=== PATIENT | male | born 1945 | race Hispanic/Latino ===

== ENCOUNTER 2017-06-21 21:25 | Emergency (ER) | payer MEDICARE ==
[2017-06-21] MEDS ORDERED: CLONIDINE HCL 0.1 MG TABLET ONE (21:44)
[2017-06-21 22:18] LABS: BASOPHILS % (AUTO) 1.2 % (0.0-5.0); EOSINOPHILS % (AUTO) 3.1 % (0.0-8.0); HEMATOCRIT 37.2 % (42-54); LYMPHOCYTES % (AUTO) 21.9 % (21.0-51.0); MEAN CORPUSCULAR HEMOGLOBIN 29.2 pg (27.0-33.0); MEAN CORPUSCULAR HGB CONC 34.3 g/dL (32.0-36.0); MEAN CORPUSCULAR VOLUME 85.2 fL (79-99); MONOCYTES % (AUTO) 11.3 % (3.0-13.0); NEUTROPHILS % (AUTO) 62.5 % (40.0-77.0); PLATELET COUNT (AUTO) 230 K/uL (130-400); RED BLOOD CELL COUNT(AUTO) 4.37 MIL/uL (4.50-6.20); RED CELL DISTRIBUTION WIDTH 13.6 % (11.0-15.5); WHITE BLOOD COUNT (AUTO) 6.6 K/uL (4.8-10.8)
[2017-06-21 22:43] LABS: CREATININE 1.7 mg/dL (0.5-1.5); POTASSIUM 3.4 mmol/L (3.5-5.1)
== END 2017-06-21 23:29 | disposition home or self-care (01) ==
LOC: EDH 21:25
DX: I10 Essential (primary) hypertension (principal)
CPT/HCPCS: 36415; 80048; 84484; 85025; 93005

== ENCOUNTER → 2017-11-27 | Outpatient (CLI) | payer MEDICARE | END | disposition home or self-care (01) | LOC: RAH 10:00 | PROVIDERS: ATTEND Family Medicine | DX: I12.9 Hypertensive chronic kidney disease with stage 1 through stage 4 chronic kidney disease, or unspecified chronic kidney disease (principal); N18.9 Chronic kidney disease, unspecified; N28.89 Other specified disorders of kidney and ureter; I70.1 Atherosclerosis of renal artery | CPT/HCPCS: 76770; 93975 ==

== ENCOUNTER 2019-04-30 09:07 | Observation (INO) | payer MEDICARE ==
[2019-04-28 15:30] VITALS: BP 138/75
[~2019-04-30] VITALS: Ht 171.4 cm; Wt 73.6 kg
[2019-04-30] VITALS (11 sets, daily range): BP systolic 134–207; BP diastolic 63–96
[~2019-04-30 09:07] MED LIST: METO-409 PO
[2019-04-30 09:32] LABS: BASOPHILS % (AUTO) 0.7 % (0.0-5.0); HEMATOCRIT 33.8 % (42-54); LYMPHOCYTES % (AUTO) 15.4 % (21.0-51.0); MEAN CORPUSCULAR HEMOGLOBIN 25.7 pg (27.0-33.0); MEAN CORPUSCULAR HGB CONC 30.8 g/dL (32.0-36.0); MEAN CORPUSCULAR VOLUME 83.7 fL (79-99); MONOCYTES % (AUTO) 8.6 % (3.0-13.0); NEUTROPHILS % (AUTO) 73.8 % (40.0-77.0); PLATELET COUNT (AUTO) 324 K/uL (130-400); RED BLOOD CELL COUNT(AUTO) 4.04 MIL/uL (4.50-6.20); RED CELL DISTRIBUTION WIDTH 14.5 % (11.0-15.5); WHITE BLOOD COUNT (AUTO) 10.7 K/uL (4.8-10.8)
[2019-04-30 09:40] LABS: CREATININE 2.1 mg/dL (0.5-1.5); POTASSIUM 4.1 mmol/L (3.5-5.1)
[2019-04-30 09:47] LABS: INR 1.03 (0.85-1.15); PROTHROMBIN TIME 10.8 SEC (9.6-11.6)
[2019-04-30] MEDS ORDERED: SODIUM CHLORIDE 0.9% 1000ML 1,000 ML IV ONE (10:28)
[2019-04-30] MEDS ORDERED: AMLO5TAB9 PO (10:30)
[2019-04-30] MEDS ORDERED: HEPARIN SODIUM 1000UNIT/ML 10ML VIAL ONE (10:54)
[2019-04-30] MEDS ORDERED: IODIXANOL 320 MG/ML 100 ML VIAL ONE ×4 (10:54→12:50)
[2019-04-30] MEDS ORDERED: FENTANYL CITRATE PF 50 MCG/1 ML 2ML VIAL ONE (10:55)
[2019-04-30] MEDS ORDERED: MIDAZOLAM HCL 1 MG/ML 2ML VIAL ONE (10:55)
[2019-04-30] MEDS ORDERED: LIDOCAINE HCL 1% MDV 50ML VIAL ONE (10:55)
[2019-04-30] MEDS ORDERED: HYDRALAZINE HCL 20 MG/ML VIAL ONE (14:58)
[2019-04-30] MEDS ORDERED: MORPHINE SULFATE 2 MG/ML 1ML SYG IVP PRN (15:00)
[2019-04-30] MEDS ORDERED: ONDANSETRON HCL 4 MG/2 ML VIAL IVP PRN (15:00)
[2019-04-30] MEDS: SODIUM CHLORIDE 0.9% 1000ML 1,000 ML IV SCH (15:43)
--- NOTE | 2019-04-30 15:50 | NUR ---
CALL TO DR. BERRIOS T/C PLACED TO DR. BERRIOS INFORMED OF TEMP 102.7, ORDERS RECEIVED, STATES THIS IS NORMAL PROCESS POST EMBOLIZATION PROCEDURE
--- NOTE | 2019-04-30 15:55 | NUR ---
PATIENT NOTED TO BE SHIVERING, TEMP 102.7. CALLED DR. CARABALLO NEW ORDER TYLENOL 650 Q4, NO BLOOD CULTURES OR ANTIBIOTICS. PER DR. CARABALLO THIS IS NORMAL REACTION TO IMBOLIZATION
[2019-04-30] MEDS ORDERED: HYDRALAZINE HCL 20 MG/ML VIAL IV SCH (16:10)
[2019-04-30] MEDS: ACETAMINOPHEN 325 MG TAB PO PRN (16:23)
[2019-05-01 04:00] VITALS: BP 147/83
[2019-05-01 08:25] VITALS: BP 151/66
[2019-05-01] MEDS: ACETAMINOPHEN 325 MG TAB PO PRN (08:28)
[2019-05-01] MEDS: SODIUM CHLORIDE 0.9% 1000ML 1,000 ML IV SCH ×2 (08:29→11:48)
[2019-05-01] MEDS ORDERED: METOPROLOL SUCCINATE 50 MG TAB.SR.24H PO SCH (09:00)
[2019-05-01] MEDS ORDERED: AMLODIPINE BESYLATE 5 MG TAB PO SCH (09:00)
--- NOTE | 2019-05-01 10:37 | NUR ---
INITIAL Patient lives with spouse, Oriana Muñoz, [phone]. No home services. DME: [facility]. Patient is able to complete ADL's and drives. No local PCP. Pharmacy is [facility] located in [place]. DCP is home. Addendum: 05/01/19 at 1039 by JAVED DRISCOLL SS Amended: Links added.
[2019-05-01 11:22] VITALS: BP 138/64
--- NOTE | 2019-05-01 14:52 | NUR ---
DISCHARGE INSTRUCTIONS GIVEN TO PATIENT MADE AWARE OF FOLLOW UP APPOINTMENT WITH DR. CARABALLO ON SUNDAY AT 1PM. AWARE ALL HOME MEDICATIONS CONTINUE WITH NO CHANGE. NO NEW RX. DRESSING TO RIGHT GROIN DRY AND INTACT, NO HEMATOMA, NO DRAINAGE. INSTRUCTED ON CARE. DENIES PAIN. GONZALEZ CATHETER PATENT DRAINING CLEAR YELLOW URINE. PATIENT WILL BE TAKEN HOME BY FAMILY
== END 2019-05-01 15:21 | disposition home or self-care (01) ==
LOC: DAH 09:07 → DAHIP 09:08 → 4DH 14:05
PROVIDERS: ADMIT Internal Medicine Hematology & Oncology; ATTEND Internal Medicine Hematology & Oncology
DX: C64.9 Malignant neoplasm of unspecified kidney, except renal pelvis (principal); R19.03 Right lower quadrant abdominal swelling, mass and lump
CPT/HCPCS: 36251; 36415 ×2; 37243; 80048; 85025; 85610; 85730; 96374; A4215; A4216; A4221; A4222; A4223 ×3; A4606; A4663; C1760; C1769 ×4; C1770; C1887 ×2; C1894 ×4; G0378 ×16; J0360; J1644; J2250; J3010; J3490; J7030; Q9967 ×4; 99156; 99157

== ENCOUNTER 2019-05-04 10:47 | Emergency (ER) | payer MEDICARE ==
[~2019-05-04 10:47] MED LIST changes: +AMLO5TAB9 PO
[2019-05-04 11:37] LABS: BASOPHILS % (AUTO) 0.4 % (0.0-5.0); EOSINOPHILS % (AUTO) 1.8 % (0.0-8.0); HEMATOCRIT 32.8 % (42-54); LYMPHOCYTES % (AUTO) 16.9 % (21.0-51.0); MEAN CORPUSCULAR HEMOGLOBIN 26.3 pg (27.0-33.0); MEAN CORPUSCULAR HGB CONC 31.7 g/dL (32.0-36.0); MEAN CORPUSCULAR VOLUME 82.8 fL (79-99); MONOCYTES % (AUTO) 7.8 % (3.0-13.0); NEUTROPHILS % (AUTO) 72.6 % (40.0-77.0); PLATELET COUNT (AUTO) 228 K/uL (130-400); RED BLOOD CELL COUNT(AUTO) 3.96 MIL/uL (4.50-6.20); RED CELL DISTRIBUTION WIDTH 14.4 % (11.0-15.5); WHITE BLOOD COUNT (AUTO) 8.4 K/uL (4.8-10.8)
[2019-05-04 12:11] LABS: INR 0.99 (0.85-1.15); PARTIAL THROMBOPLASTIN TIME 32.3 SEC (26.3-35.5); PROTHROMBIN TIME 10.4 SEC (9.6-11.6)
[2019-05-04 12:13] LABS: CREATININE 2.3 mg/dL (0.5-1.5); POTASSIUM 4.1 mmol/L (3.5-5.1)
[2019-05-04 12:17] LABS: ALBUMIN 2.6 g/dL (3.5-5.0); BILIRUBIN,TOTAL 0.4 mg/dL (0.2-1.0); TOTAL PROTEIN, SERUM 8.5 g/dL (6.0-8.3)
[2019-05-04 12:21] LABS: APPEARANCE,URINE TURBID (CLEAR); BILIRUBIN,URINE NEGATIVE (NEGATIVE); COLOR,URINE YELLOW (YELLOW); GLUCOSE, URINE (UA) NEGATIVE (NEGATIVE); KETONES,URINE NEGATIVE (NEGATIVE); LEUKOCYTE ESTERASE ,URINE LARGE (NEGATIVE); NITRATE,URINE POSITIVE (NEGATIVE); OCCULT BLOOD,URINE LARGE (NEGATIVE); PH,URINE 5.5 (5.0-8.0); PROTEIN,URINE 100 mg/dL (NEGATIVE); UROBILINOGEN,URINE 0.2 mg/dL (0.2-1.0)
[2019-05-04 13:23] LABS: BACTERIA,URINE Moderate /HPF (None Seen)
[2019-05-04 13:24] LABS: SQUAMOUS EPITHELIAL CELL,UR 0-2 /HPF (0-2); WBC,URINE 51-100 /HPF (0-1)
== END 2019-05-04 14:06 | disposition home or self-care (01) ==
LOC: EDH 10:47
DX: T83.098A Other mechanical complication of other urinary catheter, initial encounter (principal); R82.81 Pyuria; I12.9 Hypertensive chronic kidney disease with stage 1 through stage 4 chronic kidney disease, or unspecified chronic kidney disease; N18.9 Chronic kidney disease, unspecified; Z98.890 Other specified postprocedural states
CPT/HCPCS: 36415; 51702; 80053; 81001; 85025; 85610; 85730; 87077; 87088; 87186

== ENCOUNTER 2019-05-12 01:49 | Inpatient (IN) | payer MEDICARE ==
[~2019-05-12] VITALS: Ht 170.2 cm; Wt 71.2 kg
[2019-05-12 02:30] LABS: BASOPHILS % (AUTO) 0.5 % (0.0-5.0); EOSINOPHILS % (AUTO) 0.5 % (0.0-8.0); HEMATOCRIT 27.4 % (42-54); LYMPHOCYTES % (AUTO) 8.2 % (21.0-51.0); MEAN CORPUSCULAR HEMOGLOBIN 26.3 pg (27.0-33.0); MEAN CORPUSCULAR HGB CONC 32.1 g/dL (32.0-36.0); MEAN CORPUSCULAR VOLUME 81.8 fL (79-99); NEUTROPHILS % (AUTO) 80.3 % (40.0-77.0); PLATELET COUNT (AUTO) 366 K/uL (130-400); RED BLOOD CELL COUNT(AUTO) 3.35 MIL/uL (4.50-6.20); RED CELL DISTRIBUTION WIDTH 14.3 % (11.0-15.5); WHITE BLOOD COUNT (AUTO) 12.8 K/uL (4.8-10.8)
[2019-05-12 02:57] LABS: CREATININE 2.2 mg/dL (0.5-1.5); POTASSIUM 4.3 mmol/L (3.5-5.1)
[2019-05-12 03:02] LABS: ALBUMIN 2.2 g/dL (3.5-5.0); BILIRUBIN,TOTAL 0.6 mg/dL (0.2-1.0); TOTAL PROTEIN, SERUM 7.9 g/dL (6.0-8.3)
[2019-05-12] MEDS ORDERED: CEFTRIAXONE SODIUM 1 GM ONE (05:52)
[2019-05-12] MEDS: CEFTRIAXONE SODIUM 1 GM IVP SCH (06:00)
[2019-05-12] MEDS: SODIUM CHLORIDE 0.9% 1000ML 1,000 ML IV SCH ×3 (06:00→21:39)
[2019-05-12 09:00] VITALS: BP 133/75
--- NOTE | 2019-05-12 11:30 | NUR ---
CBI delarosa changed to 3 way cath using sterile technique. irrigation started but not successful as fluid seeps out from penile and minimal from the delarosa cath. patient stated that this is thesame problem that was occurring in the emergency room. manual irrigation started and expelled several clots. patient has what appears to be large hematoma to right groin area. will continue to monitor. informed PCP that the irrigation has been started.
[2019-05-12 12:00] VITALS: BP 127/69
--- NOTE | 2019-05-12 12:16 | NUR ---
INITIAL SW met with patient. Patient lives with spouse, Oriana Muñoz, [phone]. No home services. DME: [facility]. Patient is able to complete ADL's independently and drives. Patient has no PCP but states he is under the care of Oncologist, Dr. Anthony. Pharmacy is [facility] located in [place]. Patient was last in the ER on 05/04/2019. He was last hospitalized from 04/30/2019-05/01/2019 and 04/08/2019-04/11/2019. Patient states he wants to go home when discharged. Addendum: 05/12/19 at 1222 by JAVED DRISCOLL SS Amended: Links added.
--- NOTE | 2019-05-12 13:30 | NUR ---
Urology paged sent to [facility] urologist ... awaiting call back to discuss case
[2019-05-12 16:00] VITALS: BP 143/79
--- NOTE | 2019-05-12 18:13 | NUR ---
CBI 5000 MLS INPUT FROM CBI. 5400 TOTAL OUTPUT... TRUE URINE 400MLS Addendum: 05/12/19 at 1814 by DEBORAH WHELAN RN RN Amended: Links added.
[2019-05-12 19:00] VITALS: BP 144/73
[2019-05-12 23:22] VITALS: BP 164/74
[2019-05-13] VITALS (23 sets, daily range): BP systolic 131–194; BP diastolic 66–97
[2019-05-13 05:02] LABS: BASOPHILS % (AUTO) 0.4 % (0.0-5.0); EOSINOPHILS % (AUTO) 0.1 % (0.0-8.0); LYMPHOCYTES % (AUTO) 9.9 % (21.0-51.0); MEAN CORPUSCULAR HEMOGLOBIN 26.3 pg (27.0-33.0); MEAN CORPUSCULAR HGB CONC 32.1 g/dL (32.0-36.0); MEAN CORPUSCULAR VOLUME 82.1 fL (79-99); MONOCYTES % (AUTO) 11.6 % (3.0-13.0); NEUTROPHILS % (AUTO) 77.3 % (40.0-77.0); PLATELET COUNT (AUTO) 280 K/uL (130-400); RED BLOOD CELL COUNT(AUTO) 2.24 MIL/uL (4.50-6.20); RED CELL DISTRIBUTION WIDTH 14.6 % (11.0-15.5)
[2019-05-13 05:12] LABS: CREATININE 2.2 mg/dL (0.5-1.5); POTASSIUM 4.2 mmol/L (3.5-5.1)
[2019-05-13 05:14] LABS: INR 1.04 (0.85-1.15); PARTIAL THROMBOPLASTIN TIME 35.9 SEC (26.3-35.5); PROTHROMBIN TIME 11.2 SEC (9.6-11.6)
[2019-05-13 05:18] LABS: HEMATOCRIT 18.4 % (42-54)
--- NOTE | 2019-05-13 05:28 | NUR ---
CRITICAL HGB PT HGB REPORTED OF 5.8. RECHECK HGB OF 5.9. DR. BERRIOS PAGED AT THIS TIME
--- NOTE | 2019-05-13 05:31 | NUR ---
DR. BERRIOS CALL BACK DR. BERRIOS CALLED BACK AT THIS TIME. NEW ORDER: TRANSFUSE 2 UNIT OF PRBC
[2019-05-13] MEDS: CEFTRIAXONE SODIUM 1 GM IVP SCH (05:36)
--- NOTE | 2019-05-13 06:45 | NUR ---
patient came in with chronic delarosa. ED nurse changed the delarosa cath but did not change it to a 3way. upon arrival to the floor, i changed it again to a 3 way pat started the irrigation Addendum: 05/13/19 at 1412 by DEBORAH WHELAN RN RN Amended: Links added.
--- NOTE | 2019-05-13 07:00 | NUR ---
PRBC report endorsed onto me by HS nurse. pt is to receive two units PRBC and one reservations sales supervisor to OR for cystoscopy clot evac by Dr. Bowles. Total of 3 units of PRBC. CBI remains clogged and multiple attempts by HS nurse and myself are unsuccessful. made aware. will continue to assess and complete PRBC
--- NOTE | 2019-05-13 10:00 | NUR ---
first PRBC first unit completed. pt tolerated transfusion well. no signs of shortness of breath, no fever and no rash. patient denies pain and is awake alert and oriented. will call for second PRBC and start transfusion.
[2019-05-13] MEDS: SODIUM CHLORIDE 0.9% 1000ML 1,000 ML IV SCH (12:17)
--- NOTE | 2019-05-13 12:30 | NUR ---
second PRBC completed second unit as ordered. pt is awake alert and oriented. no signs of rash, allergic reaction and/or shortness of breath. denies any pain. at bedside.
[2019-05-13] MEDS: METOPROLOL SUCCINATE 50 MG TAB.SR.24H PO SCH (12:40)
[2019-05-13] MEDS: AMLODIPINE BESYLATE 5 MG TAB PO SCH (12:40)
--- NOTE | 2019-05-13 12:55 | NUR ---
elevated bp MD rounds and instructed to start BP meds with minimal sips of water. patient understands and verbalizes understanding.
[2019-05-13 13:55] LABS: HEMATOCRIT 25.1 % (42-54); MEAN CORPUSCULAR HEMOGLOBIN 26.5 pg (27.0-33.0); MEAN CORPUSCULAR HGB CONC 32.3 g/dL (32.0-36.0); PLATELET COUNT (AUTO) 316 K/uL (130-400); RED BLOOD CELL COUNT(AUTO) 3.06 MIL/uL (4.50-6.20); RED CELL DISTRIBUTION WIDTH 14.5 % (11.0-15.5); WHITE BLOOD COUNT (AUTO) 15.7 K/uL (4.8-10.8)
--- NOTE | 2019-05-13 14:44 | NUR ---
O.R. pt picked up. verified consent and pt verbalized the procedure to be done. at bedside. consent reviewed.
[2019-05-13 14:45] LABS: LYMPHOCYTES % (MANUAL) 9 % (22-44); MAN.DIFF COMMENT-IMPRESSION MANUAL DIFFERENTIAL; MONOCYTES % (MANUAL) 3 % (2-9); SEGMENTED NEUTROPHILS % 88 % (40-70)
[2019-05-13 14:46] LABS: PLATELET MORPHOLOGY COMMENT ADEQUATE
[2019-05-13] MEDS ORDERED: PROPOFOL 10 MG/ML 20ML VIAL IV ONE (15:13)
[2019-05-13] MEDS ORDERED: LIDOCAINE PF 2% 5ML ABBOJECT ONE (15:13)
[2019-05-13] MEDS ORDERED: FENTANYL CITRATE PF 50 MCG/1 ML 2ML VIAL ONE ×2 (15:13→15:46)
[2019-05-13] MEDS ORDERED: LABETALOL 20 MG/4 ML DISP.SYRIN IV ONE (16:22)
[2019-05-13] MEDS ORDERED: HYDRALAZINE HCL 20 MG/ML VIAL ONE (16:39)
--- NOTE | 2019-05-14 00:20 | NUR ---
was called and notified about patient temperature of 102.3 ,received order to give Tylenol and do blood culture,order were carried out.
[2019-05-14] MEDS ORDERED: ACETAMINOPHEN 325 MG TAB PO PRN (00:30)
[2019-05-14] MEDS ORDERED: ACETAMINOPHEN 325 MG TAB ONE (00:34)
[2019-05-14] MEDS: SODIUM CHLORIDE 0.9% 1000ML 1,000 ML IV SCH ×3 (02:32→18:00)
[2019-05-14 03:00] VITALS: BP 138/61
[2019-05-14 05:09] LABS: HEMATOCRIT 21.1 % (42-54); MEAN CORPUSCULAR HEMOGLOBIN 26.9 pg (27.0-33.0); MEAN CORPUSCULAR HGB CONC 32.2 g/dL (32.0-36.0); MEAN CORPUSCULAR VOLUME 83.4 fL (79-99); PLATELET COUNT (AUTO) 266 K/uL (130-400); RED BLOOD CELL COUNT(AUTO) 2.53 MIL/uL (4.50-6.20); RED CELL DISTRIBUTION WIDTH 14.6 % (11.0-15.5); WHITE BLOOD COUNT (AUTO) 9.4 K/uL (4.8-10.8)
[2019-05-14 05:19] LABS: INR 1.09 (0.85-1.15); PARTIAL THROMBOPLASTIN TIME 37.5 SEC (26.3-35.5); PROTHROMBIN TIME 11.7 SEC (9.6-11.6)
[2019-05-14 05:29] LABS: ALBUMIN 1.6 g/dL (3.5-5.0); BILIRUBIN,TOTAL 0.4 mg/dL (0.2-1.0); CREATININE 2.1 mg/dL (0.5-1.5); POTASSIUM 3.8 mmol/L (3.5-5.1)
[2019-05-14] MEDS: CEFTRIAXONE SODIUM 1 GM IVP SCH (05:29)
[2019-05-14 06:23] LABS: BAND NEUTROPHILS % (MANUAL) 1 % (0-2); BASOPHILS % (MANUAL) 2 % (0-2); LYMPHOCYTES % (MANUAL) 10 % (22-44); MONOCYTES % (MANUAL) 6 % (2-9); SEGMENTED NEUTROPHILS % 81 % (40-70)
[2019-05-14 06:24] LABS: MAN.DIFF COMMENT-IMPRESSION MANUAL DIFFERENTIAL; PLATELET MORPHOLOGY COMMENT ADEQUATE
--- NOTE | 2019-05-14 06:45 | NUR ---
Pageconnor Diaz regarding HH pending to call back.
[2019-05-14 08:12] VITALS: BP 152/74
--- NOTE | 2019-05-14 08:27 | NUR ---
Called Dr. Anthony to notify of critical hemoglobin value of 6.8, hematocrit 21.1, asymptomatic, currently on CBI therapy, with clear urine to drainage bag. Received telephone order for 2 units PRBC. Patient notified of treatment plan and will continue to monitor.
[2019-05-14] MEDS ORDERED: NON-FORMULARY MEDICATION 1 EACH (Metoprolol Succinate 100 MG) PO SCH (09:00)
[2019-05-14] MEDS: METOPROLOL SUCCINATE 50 MG TAB.SR.24H PO SCH (09:32)
[2019-05-14] MEDS: AMLODIPINE BESYLATE 5 MG TAB PO SCH (09:32)
[2019-05-14] MEDS ORDERED: SODIUM CHLORIDE 0.9% 250 ML IV ONE (10:59)
[2019-05-14 11:13] VITALS: BP 149/80
--- NOTE | 2019-05-14 11:23 | NUR ---
Transfusion reactions explained to patient and instructed to notify staff of any symptoms of reaction should they arise. Patient verbalized understanding. Identification and unit verification confirmed with witness Laura Taylor RN. First of 2 PRBC transfusions initiated.
[2019-05-14] MEDS ORDERED: HYDRALAZINE HCL 20 MG/ML VIAL ONE (12:03)
--- NOTE | 2019-05-14 13:27 | NUR ---
1051 patient signed IM Letter, I faxed IM Letter to [phone] and placed in chart under consent tab
[2019-05-14 16:00] VITALS: BP 148/86
[2019-05-14 19:00] VITALS: BP 157/79
[2019-05-14 23:00] VITALS: BP 184/86
[2019-05-15] MEDS: HYDRALAZINE HCL 20 MG/ML VIAL IM PRN ×2 (00:51→14:12)
[2019-05-15 03:00] VITALS: BP 165/71
[2019-05-15] MEDS: SODIUM CHLORIDE 0.9% 1000ML 1,000 ML IV SCH ×3 (04:00→18:30)
[2019-05-15] MEDS: CEFTRIAXONE SODIUM 1 GM IVP SCH (06:05)
[2019-05-15 07:34] LABS: HEMATOCRIT 26.7 % (42-54)
[2019-05-15 08:11] VITALS: BP 169/69
[2019-05-15] MEDS: AMLODIPINE BESYLATE 5 MG TAB PO SCH (09:02)
[2019-05-15] MEDS: METOPROLOL SUCCINATE 50 MG TAB.SR.24H PO SCH (09:02)
[2019-05-15 11:10] VITALS: BP 172/70
[2019-05-15 16:38] VITALS: BP 177/75
[2019-05-15] MEDS: HYDRALAZINE HCL 20 MG/ML VIAL IV PRN (18:40)
[2019-05-15 20:00] VITALS: BP 166/69
[2019-05-16] VITALS: BP 135/75
[2019-05-16 04:00] VITALS: BP 165/61
[2019-05-16] MEDS: CEFTRIAXONE SODIUM 1 GM IVP SCH (06:00)
[2019-05-16 08:00] VITALS: BP 160/85
[2019-05-16] MEDS: METOPROLOL SUCCINATE 50 MG TAB.SR.24H PO SCH (09:42)
[2019-05-16] MEDS: AMLODIPINE BESYLATE 5 MG TAB PO SCH (09:42)
[2019-05-16] MEDS: SODIUM CHLORIDE 0.9% 1000ML 1,000 ML IV SCH (10:00)
[2019-05-16 11:00] VITALS: BP 173/73
[2019-05-16] MEDS ORDERED: AMLODIPINE BESYLATE 5 MG TAB PO SCH (13:30)
[2019-05-16] MEDS: HYDRALAZINE HCL 20 MG/ML VIAL IV PRN (15:21)
[2019-05-16 16:00] VITALS: BP 165/77
--- NOTE | 2019-05-16 16:48 | NUR ---
PATIENT PREVIOUSLY INDEPENDENT- CONFIRMED WITH RN TH TPATIENT HAS BEEN UP AND AOBUT IN ROOM ON THIS ADMISSION. DCP STILL TO HOME, NO NEED FOR PT EVAL
== END 2019-05-16 18:25 | disposition home or self-care (01) | DRG 699 ==
LOC: EDH 01:49 → OBSVTOIN 05:01 → EDHIP 05:01 → 4CH 08:58
PROVIDERS: ADMIT Internal Medicine Hematology & Oncology; ATTEND Internal Medicine Hematology & Oncology
PROC: 0TCB8ZZ Extirpation of Matter from Bladder, Via Natural or Artificial Opening Endoscopic (ICD-10-PCS; principal; 2019-05-13 15:39)
PROC: 30233N1 Transfusion of Nonautologous Red Blood Cells into Peripheral Vein, Percutaneous Approach (ICD-10-PCS; 2019-05-14)
DX: N32.89 Other specified disorders of bladder (principal); C64.1 Malignant neoplasm of right kidney, except renal pelvis; D62 Acute posthemorrhagic anemia; K92.2 Gastrointestinal hemorrhage, unspecified; C79.9 Secondary malignant neoplasm of unspecified site; R31.0 Gross hematuria; I12.9 Hypertensive chronic kidney disease with stage 1 through stage 4 chronic kidney disease, or unspecified chronic kidney disease; C76.8 Malignant neoplasm of other specified ill-defined sites; I25.10 Atherosclerotic heart disease of native coronary artery without angina pectoris; N18.9 Chronic kidney disease, unspecified; Z87.891 Personal history of nicotine dependence
CPT/HCPCS: 36415; 36430; 71045; 74176; 76882; 80048; 80053; 82150; 82550; 82948; 83605; 83690; 84484; 85014; 85018; 85025; 85610; 85730; 86850; 86900; 86901; 86922; 87040; 93005; A4354; G0378; J0360; J0696; J2001; J2704; J3010; J7030; J7120; P9016